=== PATIENT | female | born 1990 | race Caucasian/White ===

== ENCOUNTER 2021-06-12 12:58 | Outpatient (CLI) | payer BC | END 2021-06-12 12:59 | disposition home or self-care (01) | LOC: BICMRI 12:58 | DX: M79.89 Other specified soft tissue disorders (principal) | CPT/HCPCS: 82565 ==

== ENCOUNTER 2021-07-08 20:12 | Emergency (ER) | payer BC, OTHER ==
[2021-07-08] MEDS ORDERED: predniSONE 20 MG TAB ONE (21:16)
[2021-07-08] MEDS ORDERED: Ibuprofen 200 MG TAB ONE (21:16)
[2021-07-08] MEDS ORDERED: diphenhydrAMINE 50 MG/ML VIAL ONE (21:17)
[2021-07-08] MEDS ORDERED: Famotidine/PF 20 mg/2ml Vial ONE ×2 (21:17→21:20)
== END 2021-07-08 22:15 | disposition home or self-care (01) ==
LOC: ERS 20:12
DX: T63.481A Toxic effect of venom of other arthropod, accidental (unintentional), initial encounter (principal)
CPT/HCPCS: 96374; 96375; J1200; J7512; S0028